=== PATIENT | female | born 1935 | race Caucasian/White ===

== ENCOUNTER 2017-09-15 17:06 | Emergency (ER) | payer MEDICARE ==
[~2017-09-15] VITALS: Ht 160 cm; Wt 117.9 kg
[2017-09-15] MEDS ORDERED: KEFLEX 500MG.500 MG PO (18:51)
--- NOTE | 2017-09-15 18:53 | Emergency Room Report ---
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 N Clinical Suspician of Infection? N Mental Status: 1 - Regular (Normal Baseline) Sepsis Risk:Low Sepsis Risk Have you (or family members/close friends) recently traveled outside the [place]? N If Yes, where/when: Have you had exposure to infectious disease within the past month? TB? Other? Specify: 82 years old white female on no anticoagulation. she hit her LEFT leg on a car door with the result of 3 cm laceration of skin and subcutaneous tissue. No loss of sensory function. Source patient, RN notes reviewed, family Exam Limitations no limitations ALLERGIES Coded Allergies: No Known Allergies (09/15/17) History Medical History General Hypertension? Yes Thyroid Problems? Yes More? Yes Additional hx: LYMPHADEMA Immunization Hx Ped.Immunizations UTD Yes DT/Tetanus > 10 Years Ago Surgical Hx Previous Surgery?N Social History Smoking Hx Smoker: Never Smoker Tobacco: No Type N/A Are you/the child exposed to second-hand smoke: No Alcohol Alcohol: No Review of Systems All Other Systems Reviewed and Negative Constitutional no symptoms reported Eyes no symptoms reported ENT no symptoms reported. Respiratory no symptoms reported Cardiovascular no symptoms reported Gastrointestinal no symptoms reported Genitourinary no symptoms reported. Musculoskeletal no symptoms reported Skin denies see HPI Psychiatric/Neurological no symptoms reported Physical Exam Vital Signs Vital Signs Date Time Temp Pulse Resp B/P Pulse O2 O2 Flow FiO2 Ox Delivery Rate 09/15 1739 98.1 50 18 125/67 97 - WBC >12,000 or <4,000 or 10% bands? 2 or more SIRS Criteria Met? B/P:125/67 MAP:86 Creatinine >2.0? UA output<0.5ml/kg/hr for 2 hrs? Platelet count >100,000? Lactate >2.0mmol/1? INR >1.2 or PTT > than 60 sec? Evidence of Organ Dysfunction? Provider documented clinical suspician of infection? N Sepsis Criteria Count: 0 Sepsis Risk: Low Sepsis Risk General Appearance normal appearance, WD/WN Eye Exam - bilateral eye normal exam, bilateral eye PERRL, bilateral eye EOMI Ear, Nose, Throat hearing grossly normal, normal ENT inspection Neck normal inspection, non-tender, supple, full range of motion Respiratory Status Yes: trachea midline, chest symmetrical, non tender chest. No: respiratory distress. Lung Sounds bilateral: normal breath sounds, lungs clear. 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 Medical Decision Making LABS/Meds/Orders Pt receiving controlled substance in ED? No Results/Orders Current Medication Orders Sig/Tha Start time Last Medication Dose Route Stop Time Status Admin Multi-Ingredient 0 .STK-MED ONE 09/15 1843 DC Ointment TP Diphtheria/Pertussis/ 0 .STK-MED ONE 09/15 1801 DC Tetanus Vacc IM Lidocaine HCl 0 .STK-MED ONE 09/15 1745 DC .ROUTE Lidocaine/Epinephrine 0 .STK-MED ONE 09/15 1745 DC .ROUTE Departure Departure Time of Disposition 1848 Disposition DC Home or Self Care(routine) Clinical Impression Primary Impression: Laceration of skin of left lower leg without complication Condition STABLE Referrals KATIA KAHN (Family) Additional Instructions rest and elevate the leg keep the wound dry and clean apply daily neosprin 2 days wound check a 2 weeks stitiches removal Discharge Counseling Counseled pt/family regarding diagnosis, medications/RX, home care, follow up needs Prescriptions Current Visit Scripts CEPHALEXIN (Keflex 500MG Capsule) 500 MG PO Q8 #21 [facility] ED Critical Care Critical Care No If Critical Care minutes are documented, the time involved in the performance of seperately reportable procedures was not counted toward critical care time documented. I directly delivered medical care to this critically ill and/or injured patient. Timely evaluation and treatment was necessary to address the significant organ system(s) dysfunction present in this patient. at [id number]
--- OUTSIDE RECORDS SUMMARY | 2017-09-15 18:58 | External Medical Summary Rpt ---
Author Author CJ Knapp, CJ Knapp Organization [employer] Address Unknown Phone Unavailable
--- OUTSIDE RECORDS SUMMARY | 2017-09-15 18:58 | External Medical Summary Rpt | CCD ---
Demographics Home Phone Preferred Language Montenegrin Marital Status Unknown Spiritism Affiliation Unknown Race Unknown Ethnic Group Unknown Author Author CJ Address Unknown Phone [email or web address] Purpose Continuity of Care Document - through 2016
--- OUTSIDE RECORDS SUMMARY | 2017-09-15 18:58 | External Medical Summary Rpt | CCD ---
Author Author [employer] Organization [employer] Address Unknown Phone Unavailable Purpose Continuity of Care Document - through 2016
--- OUTSIDE RECORDS SUMMARY | 2017-09-15 18:58 | External Medical Summary Rpt | CCD ---
Author Author , CJ CORONA Address Unknown Phone [email or web address] Immunization Name Date Rout CVX Reac Dose Comm Prov Is Faci e tion ent ider Refu lity Give sed n Zost 07-3 121 999 Hist H112 No H112 er 1-20 oric 14 al Info rmat ion - Sour ce Unsp ecif ied Td 07-1 9 999 Hist H112 No H112 (rogelio 7-19 oric lt), 97 al Info adso rmat rbed ion - Sour ce Unsp ecif ied Td 03-0 9 999 Hist H112 No H112 (rogelio 6-19 oric lt), 97 al Info adso rmat rbed ion - Sour ce Unsp ecif ied
--- OUTSIDE RECORDS SUMMARY | 2017-09-15 18:58 | External Medical Summary Rpt | CCD ---
Demographics Home Phone Preferred Language Brazilian Marital Status Unknown Mormonism Affiliation Unknown Race Unknown Ethnic Group Unknown Author Author CJ Address Unknown Phone [email or web address] Purpose Continuity of Care Document - through 2016
--- OUTSIDE RECORDS SUMMARY | 2017-09-15 18:58 | External Medical Summary Rpt | CCD ---
Author Author , CJ CORONA Address Unknown Phone [email or web address] Immunization Name Date Rout CVX Reac Dose [...]
[2017-09-15 19:01] VITALS: BP 125/67
== END 2017-09-15 19:01 | disposition home or self-care (01) ==
LOC: ER 17:06
PROC: 0HQLXZZ Repair Left Lower Leg Skin, External Approach (ICD-10-PCS; principal; 2017-09-15)
DX: S81.812A Laceration without foreign body, left lower leg, initial encounter (principal); W45.8XXA Other foreign body or object entering through skin, initial encounter; W22.8XXA Striking against or struck by other objects, initial encounter; Y92.89 Other specified places as the place of occurrence of the external cause; Z23 Encounter for immunization